=== PATIENT | female | born 1935 | race Caucasian/White ===

== ENCOUNTER 2017-04-06 11:29 | Inpatient (IN) | payer OTHER ==
[~2017-04-06] VITALS: Ht 152.4 cm; Wt 47.2 kg
[~2017-04-06 11:29] MED LIST: ASPIR 8181 M1 PO; DOXYCYCLINE HY100 M3 PO; DOXYCYCLINE HY100 MG PO; FLUOXETINE HCL10 MG PO; HYDROCODON-ACE1 EAC7 PO; KEFLEX500 MG PO; LATANOPROST2.5 ML BOTH EYES; OXAZEPAM10 MG PO; PLETAL50 MG PO; SEREVENT DISKU50 MCG IH; TYLENOL EXTRA500 MG PO
[2017-04-06 12:27] LABS: BASOPHIL (%) 0.3 % (0-1); EOSINOPHIL (%) 1.4 % (0-5); EOSINOPHIL COUNT 0.1 K/uL (0-0.3); HEMATOCRIT 39.7 % (36.0-46.0); HEMOGLOBIN 12.8 G/DL (11.9-15.5); IMMATURE GRANULOCYTE (%) 0.3 % (0.0-0.7); LYMPHOCYTE (%) 17.3 % (15-42); LYMPHOCYTE COUNT 1.1 K/uL (1.0-2.8); MCH 29.6 PG (29.0-34.0); MCHC 32.2 G/DL (30.0-36.0); MCV 91.7 FL (83-99); MONOCYTE (%) 7.5 % (3-12); MONOCYTE COUNT 0.5 K/uL (0-0.8); NEUTROPHIL (%) 73.2 % (45-76); NEUTROPHIL COUNT 4.6 K/uL (1.8-6.4); PLATELET COUNT 188 K/uL (156-360); RBC DIS.WIDTH-SD 47.7 % (39-53); RED BLOOD COUNT 4.33 M/uL (3.80-5.20); WHITE BLOOD COUNT 6.3 K/uL (4.1-10.2)
[2017-04-06 12:35] LABS: CHLORIDE 108 mEq/L (99-109); POTASSIUM 3.7 mEq/L (3.7-5.4); SODIUM 141 mEq/L (136-147)
[2017-04-06 12:37] LABS: GLUCOSE 110 mg/dL (70-99)
[2017-04-06 12:38] LABS: PTT 33.5 SEC (25-37)
[2017-04-06 12:41] LABS: CREATININE 0.8 mg/dL (0.6-1.3); GFR ESTIMATE (CALCULATED) > 59 mL/min/
[2017-04-06 12:42] LABS: UREA NITROGEN (BUN) 18 mg/dL (9-23)
[2017-04-06 12:47] LABS: TROP-I INTERPRETATION NEGATIVE; TROPONIN-I < 0.01 ng/mL (0.0-0.30)
[2017-04-06 17:53] VITALS: BP 147/97
[2017-04-06 20:05] VITALS: BP 160/87
[2017-04-06 23:15] VITALS: BP 163/88
[2017-04-07 03:20] VITALS: BP 163/77
[2017-04-07 07:07] VITALS: BP 189/97
[2017-04-07 11:20] VITALS: BP 148/78
[2017-04-07 15:05] VITALS: BP 145/90
[2017-04-07 19:45] VITALS: BP 139/77
[2017-04-08] VITALS (9 sets, daily range): BP systolic 122–179; BP diastolic 60–98
[2017-04-09 08:26] VITALS: BP 169/81
[2017-04-09 13:27] VITALS: BP 175/95
[2017-04-09 15:24] VITALS: BP 132/71
[2017-04-09 17:01] LABS: HEMATOCRIT 40.1 % (36.0-46.0); HEMOGLOBIN 12.5 G/DL (11.9-15.5); MCV 92.2 FL (83-99)
[2017-04-10 00:01] VITALS: BP 165/22
[2017-04-10 07:19] LABS: HEMATOCRIT 40.4 % (36.0-46.0); HEMOGLOBIN 12.8 G/DL (11.9-15.5); MCV 93.3 FL (83-99)
[2017-04-10 07:50] LABS: CHLORIDE 104 MEQ/L (99-109); CREATININE 0.9 MG/DL (0.6-1.3); GFR ESTIMATE (CALCULATED) > 59 mL/min/; GLUCOSE 87 mg/dL (70-99); POTASSIUM 4.2 MEQ/L (3.7-5.4); SODIUM 141 MEQ/L (136-147); UREA NITROGEN (BUN) 24 mg/dL (9-23)
[2017-04-10 08:23] VITALS: BP 175/80
[2017-04-10 16:03] VITALS: BP 167/86
[2017-04-11] VITALS: BP 134/65
[2017-04-11 07:06] VITALS: BP 116/55
[2017-04-11 07:42] LABS: HEMATOCRIT 41.6 % (36.0-46.0); HEMOGLOBIN 13.2 G/DL (11.9-15.5); MCV 92.4 FL (83-99)
[2017-04-11 08:30] VITALS: BP 142/76
[2017-04-11 15:05] VITALS: BP 159/72
[2017-04-11 23:40] VITALS: BP 121/63
[2017-04-12 06:25] LABS: HEMATOCRIT 39.4 % (36.0-46.0); HEMOGLOBIN 12.7 G/DL (11.9-15.5); MCV 93.4 FL (83-99)
[2017-04-12 08:09] VITALS: BP 128/75
== END 2017-04-12 14:45 | disposition home or self-care (01) | DRG 194 ==
LOC: EME 11:29 → EDOF 14:00 → 2EAST 14:00 → ENRESERV 14:47 → 2EAST 17:43
PROVIDERS: Emergency Medicine; Internal Medicine
DX: J18.9 Pneumonia, unspecified organism (principal); J44.0 Chronic obstructive pulmonary disease with (acute) lower respiratory infection; J44.1 Chronic obstructive pulmonary disease with (acute) exacerbation; I10 Essential (primary) hypertension; E78.5 Hyperlipidemia, unspecified; I25.10 Atherosclerotic heart disease of native coronary artery without angina pectoris; F32.9 Major depressive disorder, single episode, unspecified; F41.9 Anxiety disorder, unspecified; I25.2 Old myocardial infarction; Z95.1 Presence of aortocoronary bypass graft; Z85.3 Personal history of malignant neoplasm of breast; Z87.891 Personal history of nicotine dependence; Z79.02 Long term (current) use of antithrombotics/antiplatelets
CPT/HCPCS: 71045; 80048; 83880; 84484; 85014; 85018; 85025; 85610; 85730; 87040; 93005; 94640; 94640 76; 94760; 94799; 99202; 99281; 99285; J0456; J0696; J1100; J7644

== ENCOUNTER 2017-07-25 12:24 | Emergency (ER) | payer OTHER ==
[~2017-07-25] VITALS: Ht 157.5 cm; Wt 45.7 kg
[2017-07-25 13:24] LABS: HEMOGLOBIN 12.7 G/DL (11.9-15.5); MCH 29.8 PG (29.0-34.0); MCHC 32.6 G/DL (30.0-36.0); MCV 91.5 FL (83-99); PLATELET COUNT 256 K/uL (156-360); RBC DIS.WIDTH-CV 13.6 % (11.8-14.6); RBC DIS.WIDTH-SD 45.7 % (39-53); RED BLOOD COUNT 4.26 M/uL (3.80-5.20); WHITE BLOOD COUNT 9.5 K/uL (4.1-10.2)
[2017-07-25 13:35] LABS: CHLORIDE 104 mEq/L (99-109); POTASSIUM 3.9 mEq/L (3.7-5.4); SODIUM 140 mEq/L (136-147)
[2017-07-25 13:37] LABS: GLUCOSE 86 mg/dL (70-99); TOTAL PROTEIN 6.9 g/dL (6.4-8.3)
[2017-07-25 13:39] LABS: TOTAL BILIRUBIN 0.5 mg/dL (0.0-1.0)
[2017-07-25 13:40] LABS: ALKALINE PHOSPHATASE 62 IU/L (3-129)
[2017-07-25 13:41] LABS: CREATININE 0.9 mg/dL (0.6-1.3); GFR ESTIMATE (CALCULATED) > 59 mL/min/
[2017-07-25 13:42] LABS: AST (GOT) 17 IU/L (2-34); UREA NITROGEN (BUN) 17 mg/dL (9-23)
[2017-07-25 13:43] LABS: ALT (GPT) 11 IU/L (3-49)
[2017-07-25 16:41] LABS: APPEARANCE CLEAR ((CLEAR)); BILIRUBIN NEGATIVE; BLOOD NEGATIVE; COLOR STRAW ((YELLOW)); GLUCOSE (STRIP) NEGATIVE; KETONES 5; LEUKOCYTES NEGATIVE; NITRITE NEGATIVE; PROTEIN (STRIP) NEGATIVE; SPECIFIC GRAVITY 1.009 (1.000-1.030); UCUL ADDED? NO; UROBILINOGEN 0.2 MG/DL (0.2-1.0)
[2017-07-25 17:39] LABS: LIPASE 42 U/L (1.0-51.0)
[2017-07-25 18:00] VITALS: BP 171/87
== END 2017-07-25 18:20 | disposition home or self-care (01) ==
LOC: EME 12:24
PROVIDERS: Emergency Medicine
DX: K52.9 Noninfective gastroenteritis and colitis, unspecified (principal); J44.9 Chronic obstructive pulmonary disease, unspecified; K21.9 Gastro-esophageal reflux disease without esophagitis; I25.2 Old myocardial infarction; I25.10 Atherosclerotic heart disease of native coronary artery without angina pectoris; F41.9 Anxiety disorder, unspecified; F32.9 Major depressive disorder, single episode, unspecified; Z95.1 Presence of aortocoronary bypass graft; Z85.3 Personal history of malignant neoplasm of breast; Z90.11 Acquired absence of right breast and nipple; Z88.2 Allergy status to sulfonamides; Z88.1 Allergy status to other antibiotic agents; Z88.0 Allergy status to penicillin; Z87.891 Personal history of nicotine dependence
CPT/HCPCS: 71046; 74176; 80053; 81003; 83605; 83690; 85027; 87493; 93005; 99281; 99284; J2405; J7030